=== PATIENT | female | born 1970 | race Two or more races ===

== ENCOUNTER → 2024-12-30 | Outpatient (CLI) | payer OTHER, SELFPAY ==
--- NOTE | 2024-12-30 14:15 | XR_ITS ---
Examination: Screening digital mammography, bilateral Computer aided detection 3-D breast Tomosynthesis, bilateral Date and time of exam: December 30, 2024 1424 hours Comparison November 04, 2021 Indication: Screening Technique: Nonmagnified MLO, CC views of the breasts to been obtained, reconstructed from 3-D Tomosynthesis images. R2 computer aided detection program utilized for evaluation of suspicious masses and/or abnormal calcifications. 3-D Tomosynthesis images obtained. Findings: Scattered areas of fibroglandular density 12 mm focal asymmetry lobular margins upper outer left breast Impression: BI-RADS Category 0: Incomplete: Need additional imaging evaluation 12 mm focal asymmetry lobular margins upper outer left breast, recommend follow-up spot tomographic views of this asymmetry as well as left breast sonography to complete the workup.
== END | disposition home or self-care (01) ==
PROVIDERS: Referring Provider Nurse Practitioner Adult Health; Visit Provider Nurse Practitioner Adult Health
DX: Z12.31 Encounter for screening mammogram for malignant neoplasm of breast (principal); N64.89 Other specified disorders of breast
CPT/HCPCS: 77063; 77067

== ENCOUNTER → 2025-02-02 | Outpatient (CLI) | payer OTHER, SELFPAY ==
--- NOTE | 2025-02-02 08:30 | XR_ITS ---
Examination: Breast ultrasound, unilateral, left complete Date and time of exam: February 02, 2025 0905 hours INDICATIONS: Mammogram December 30, 2024 12 mm focal asymmetry lobular margins outer left breast Technique: Real-time anderson scale ultrasonographic imaging performed left breast including all 4 quadrants as well as nipple retroareolar and axillary region. Findings: 2:00 cyst 4 x 4 millimeter 3:00 nodule circumscribed 6 x 5 mm 11:00 nodule circumscribed 4 x 4 millimeter 11:00 cyst 4 x 3 mm IMPRESSION: BI-RADS Category 2: Benign findings
--- NOTE | 2025-02-02 09:00 | XR_ITS ---
Examination: Diagnostic digital mammography, unilateral, left Computer aided detection 3-D breast Tomosynthesis, unilateral Date and time of exam: February 02, 2025 0918 hours INDICATIONS: Mammogram December 30, 2024 12 mm focal asymmetry lobular margins outer left breast Technique: Nonmagnified MLO, CC views of the left breast have been obtained, reconstructed from 3-D Tomosynthesis images. R2 computer aided detection program utilized for evaluation of suspicious masses and/or abnormal calcifications. 3-D Tomosynthesis images obtained. Findings: Scattered areas of fibroglandular density Focal asymmetry remains outer left breast Impression: BI-RADS category 3: Probably benign findings Recommend bilateral mammography 6 month follow-up
== END | disposition home or self-care (01) ==
PROVIDERS: PCP Family Medicine; Referring Provider Family Medicine; Visit Provider Family Medicine
DX: R92.322 Mammographic fibroglandular density, left breast (principal)
CPT/HCPCS: 76641; 77061; 77065; G0279